=== PATIENT | male | born 1965 | race Caucasian/White ===

== ENCOUNTER 2017-12-01 08:46 | Emergency (ER) | payer BC ==
[~2017-12-01] VITALS: Ht 182.9 cm; Wt 122.9 kg
[2017-12-01 09:40] VITALS: BP 132/80
--- NOTE | 2017-12-01 09:45 | NUR ---
PT AMBULATES TO OF1
--- NOTE | 2017-12-01 09:50 | NUR ---
PATIENT PRESENTS TO ED WITH C/O COUGH SINCE LAST NIGHT WITH PINK EYE; NO DISCHARGES NOTED ON BOTH EYES;HX OF DM, HTN .DENIES N/V/D; SKIN IS PINK/WARM/DRY; AAOX4 WITH EVEN AND STEADY GAIT;HR EVEN AND REGULAR; PT DENIES ANY FEVER, CP, SOB AT THIS TIME; PATIENT STATES PAIN OF 0/10 AT THIS TIME;PATIENT POSITIONED FOR COMFORT; HOB ELEVATED; BEDRAILS UP X2; BED DOWN. ER MD MADE AWARE OF PT STATUS.
--- NOTE | 2017-12-01 11:00 | NUR ---
PT SITTING ON CHAIR; AT BEDSIDE;NO ACUTE DISTRESS NOTED;WILL CONTINUE TO MONITOR;
--- NOTE | 2017-12-01 11:12 | NUR ---
Patient discharged with v/s stable. Written and verbal after care instructions given and explained. Patient alert, oriented and verbalized understanding of instructions. Ambulatory with steady gait. All questions addressed prior to discharge. ID band removed. Patient advised to follow up with PMD. Rx of ERYTHROMYCIN AND PREDNISONE given. Patient educated on indication of medication including possible reaction and side effects. Opportunity to ask questions provided and answered.
[2017-12-01 11:14] VITALS: BP 132/80
== END 2017-12-01 11:12 | disposition home or self-care (01) ==
LOC: MED 08:46
DX: H10.9 Unspecified conjunctivitis (principal); R05 Cough; J44.9 Chronic obstructive pulmonary disease, unspecified
CPT/HCPCS: 99283